=== PATIENT | female | born 1960 | race Hispanic/Latino ===

== ENCOUNTER → 2022-12-22 | Outpatient (CLI) | payer OTHER ==
[2022-12-22 22:08] VITALS: PULSE 67; RESP 8
[2022-12-22 22:30] VITALS: PULSE 67; RESP 12
[2022-12-22 22:57] VITALS: PULSE 64; RESP 18
[2022-12-22 23:36] VITALS: PULSE 65; RESP 14
[2022-12-23] VITALS (19 sets, daily range): PULSE 51–67; RESP 12–29
== END | disposition home or self-care (01) ==
LOC: SLP 20:17
PROVIDERS: ATTEND Internal Medicine
DX: G47.33 Obstructive sleep apnea (adult) (pediatric) (principal); G47.8 Other sleep disorders; R06.83 Snoring
CPT/HCPCS: 95811